=== PATIENT | female | born 1990 | race African-American/Black ===

== ENCOUNTER 2019-06-28 09:52 | Observation (INO) ==
[2019-06-28] MEDS ORDERED: LACTATED RINGERS 1,000 ML IV SCH (11:00)
[2019-06-28] MEDS ORDERED: PROMETHAZINE 25 MG/1 ML VIAL IM ONE (11:00)
[2019-06-28] MEDS ORDERED: PROMETHAZINE 25 MG/1 ML VIAL IM PRN (11:55)
[2019-06-28] MEDS: LACTATED RINGERS 1,000 ML IV SCH (15:01)
[2019-06-29 05:48] LABS: Albumin 2.4 G/DL (3.4-5.0); Bilirubin,Total 0.8 MG/DL (0.2-1.0); Calcium 9.2 MG/DL (8.5-10.1); Total Protein 6.6 G/DL (6.4-8.3)
[2019-06-29] MEDS: LACTATED RINGERS 1,000 ML IV SCH ×2 (08:30→17:50)
[2019-06-29 15:06] LABS: Albumin 2.5 G/DL (3.4-5.0); Bilirubin,Total 0.5 MG/DL (0.2-1.0); Calcium 9.2 MG/DL (8.5-10.1); Osmolality,Calculated 278.1 MOS/KG (273-304); Total Protein 6.9 G/DL (6.4-8.3)
[2019-06-29] MEDS: PANTOPRAZOLE 40 MG VIAL IV SCH (20:30)
[2019-06-30] MEDS: LACTATED RINGERS 1,000 ML IV SCH (04:11)
[2019-06-30] MEDS: PANTOPRAZOLE 40 MG VIAL IV SCH (10:10)
[2019-06-30 10:15] VITALS: BP 119/60
== END 2019-06-30 12:20 | disposition home or self-care (01) ==
LOC: EDSTATUS 09:52 → N.LD 09:52 → N.OB 09:52 → N.LDOUT 09:52 → N.LD 09:53 → N.OB 12:32 → EDSTATUS 07-04 08:07 → UNDODEPREF 07-12 10:38
PROVIDERS: ADMIT Obstetrics & Gynecology; ATTEND Obstetrics & Gynecology

== ENCOUNTER 2019-09-21 09:00 | Inpatient (IN) ==
[2019-09-22] MEDS ORDERED: LABETALOL 100 MG TABLET PO SCH (09:00)
[2019-09-22 09:41] LABS: Basophils % 0.3 % (0.0-0.8); Eosinophils % 0.5 % (0.00-10.9); Hematocrit 35.7 VOL% (35.7-47.0); Hemoglobin 11.4 GM/DL (12.0-16.0); Immature Granulocytes % 0.2 %; Immature Granulocytes Absolute 0.01 #; Lymphocytes # 1.9 10*3/uL (1.4-4.0); Lymphocytes % 30.4 % (21.3-54.2); Mean Corpuscular HGB Conc 31.9 GM/DL (32-36); Mean Corpuscular Volume 72.4 FL (87-102); Monocytes % 7.5 % (1.7-12.7); Neutrophils % 61.1 % (38.7-73.9); Platelet Count 175 T/CUMM (130-400); Red Blood Count 4.93 MC/CUMM (3.8-5.5); Red Cell Distribution Width 15.7 % (9.3-17.3); White Blood Count 6.3 T/CUMM (4-12)
[2019-09-22 09:58] LABS: INR 0.9; Partial Thromboplastin Time 38.7 SECS (20.8-36.0)
[2019-09-22 10:00] LABS: Hypochromasia 1+; Microcytosis 1+
[2019-09-22 10:01] LABS: Ovalocytes Few; Tear Drop Cells Slight
[2019-09-22 10:08] LABS: Alanine Aminotransferase 11 U/L (13-56); Albumin 2.6 G/DL (3.4-5.0); Alkaline Phosphatase 121 U/L (45-117); Aspartate Amino Transferase 12 U/L (0-37); Bilirubin,Total < 0.39 MG/DL (0.2-1.0); Blood Urea Nitrogen 14 MG/DL (7-18); Calcium 8.9 MG/DL (8.5-10.1); Estimated Glom Filtration Rate 181 ML/MIN; Glucose 72 MG/DL (74-106); Osmolality,Calculated 272.8 MOS/KG (273-304); Total Protein 7.1 G/DL (6.4-8.3)
[2019-09-22] MEDS ORDERED: FAMOTIDINE 20 MG/2 ML VIAL IV ONE (11:00)
[2019-09-22] MEDS ORDERED: OXYTOCIN/LR 30 UNIT/1,000 ML BAG IV ONE (11:00)
[2019-09-22] MEDS ORDERED: CITRIC ACID/SODIUM CITRATE 30 ML UDCUP PO ONE (11:00)
[2019-09-22] MEDS ORDERED: ceFAZolin 3,000 MG in SYRINGE 1 EACH IV ONE (11:00)
[2019-09-22] MEDS ORDERED: OXYTOCIN 10 UNIT/ML VIAL IM ONE (11:00)
[2019-09-22] MEDS: LACTATED RINGERS 1,000 ML IV SCH ×2 (12:42→12:43)
[2019-09-22] MEDS ORDERED: OXYTOCIN/LR 20 UNIT/1,000 ML BAG IV ONE (14:26)
[2019-09-22] MEDS ORDERED: ACETAMINOPHEN 325 MG TABLET PO PRN (14:26)
[2019-09-22] MEDS ORDERED: ONDANSETRON 4 MG/2 ML VIAL IV PRN (14:26)
[2019-09-22] MEDS ORDERED: SIMETHICONE CHEW 80 MG TABLET PO PRN (14:26)
[2019-09-22] MEDS ORDERED: RHO(D) IMMUNE GLOBULIN 300 MCG SYRINGE IM ONE (14:26)
[2019-09-22] MEDS ORDERED: ceFAZolin 1,000 MG in SYRINGE 1 EACH IV SCH (14:30)
[2019-09-22] MEDS ORDERED: LACTATED RINGERS 1,000 ML IV SCH (14:30)
[2019-09-22 14:34] LABS: Cord Venous Blood HCO3 21.2 MMOL/L; Cord Venous Blood PCO2 45.5 MMHG
[2019-09-22 14:35] LABS: Cord Venous Blood PO2 19.5
[2019-09-22] MEDS ORDERED: PHENYLEPHRINE 1 MG/10 ML SYRINGE IV ONE (14:46)
[2019-09-22] MEDS ORDERED: fentaNYL 100 MCG/2 ML VIAL ONE (14:46)
[2019-09-22] MEDS ORDERED: BUPIVACAINE SPINAL 0.75% 2 ML AMP SPINAL ONE (14:46)
[2019-09-22] MEDS ORDERED: MIDAZOLAM 2 MG/2 ML VIAL ONE (14:46)
[2019-09-22] MEDS ORDERED: MORPHINE 10 MG/10 ML VIAL ONE (14:46)
[2019-09-22] MEDS ORDERED: LIDOCAINE 2% 5 ML VIAL ONE (14:47)
[2019-09-22 14:48] LABS: Apearance,Urine CLEAR (Clear); Bilirubin,Urine Negative (Negative); Blood, Urine Negative (Negative); Glucose,Urine (UA) Negative (Negative); Ketones,Urine 20 mg/dL (Negative); Mucus,Urine Occasional /LPF (Occasional); Nitrite,Urine Negative (Negative); Protein,Urine Negative; RBC,Urine <1 /HPF (0-4); Squamous Epithelial Cell,Urine Occasional /HPF (0-10); Urine Color Straw (Yellow); Urine Specific Gravity 1.012 (1.001-1.035); Urine Urobilinogen < 2.0 EU/DL (0.2-1.0); WBC,Urine 1 /HPF (0-6)
[2019-09-22] MEDS ORDERED: HYDROmorphone 2 MG/1 ML VIAL IV PRN (19:21)
[2019-09-22] MEDS: DOCUSATE SODIUM 100 MG CAPSULE PO SCH (21:14)
[2019-09-22 22:50] LABS: Basophils % 0.3 % (0.0-0.8); Eosinophils % 0.3 % (0.00-10.9); Hematocrit 36.2 VOL% (35.7-47.0); Hemoglobin 11.3 GM/DL (12.0-16.0); Immature Granulocytes % 0.4 %; Immature Granulocytes Absolute 0.03 #; Lymphocytes # 2.1 10*3/uL (1.4-4.0); Lymphocytes % 26.6 % (21.3-54.2); Mean Corpuscular HGB Conc 31.2 GM/DL (32-36); Mean Corpuscular Volume 73.9 FL (87-102); Monocytes % 7.9 % (1.7-12.7); Neutrophils % 64.5 % (38.7-73.9); Platelet Count 208 T/CUMM (130-400); Red Cell Distribution Width 15.9 % (9.3-17.3); White Blood Count 7.7 T/CUMM (4-12)
[2019-09-23 00:54] LABS: Ovalocytes 1+; Platelet Estimate Normal; Tear Drop Cells Few
[2019-09-23] MEDS ORDERED: LACTATED RINGERS 1,000 ML IV SCH (01:00)
[2019-09-23] MEDS ORDERED: diphenhydrAMINE 50 MG/1 ML VIAL IV PRN (04:53)
[2019-09-23] MEDS ORDERED: ceFAZolin 1,000 MG in SYRINGE 1 EACH IV ONE (06:00)
[2019-09-23] MEDS: METOCLOPRAMIDE 10 MG TABLET PO SCH ×4 (07:15→22:57)
[2019-09-23 07:27] LABS: Basophils % 0.3 % (0.0-0.8); Eosinophils % 0.5 % (0.00-10.9); Hematocrit 33.7 VOL% (35.7-47.0); Hemoglobin 10.7 GM/DL (12.0-16.0); Immature Granulocytes % 0.4 %; Immature Granulocytes Absolute 0.03 #; Lymphocytes # 1.5 10*3/uL (1.4-4.0); Lymphocytes % 18.7 % (21.3-54.2); Mean Corpuscular HGB Conc 31.8 GM/DL (32-36); Mean Corpuscular Volume 73.3 FL (87-102); Monocytes % 8.2 % (1.7-12.7); Neutrophils % 71.9 % (38.7-73.9); Platelet Count 155 T/CUMM (130-400); Red Cell Distribution Width 15.7 % (9.3-17.3); White Blood Count 7.8 T/CUMM (4-12)
[2019-09-23] MEDS: MULTIVITAMIN (PRENATAL) TABLET PO SCH (08:54)
[2019-09-23] MEDS: IBUPROFEN 800 MG TABLET PO PRN ×2 (08:54→22:58)
[2019-09-23] MEDS: DOCUSATE SODIUM 100 MG CAPSULE PO SCH ×2 (08:54→21:21)
[2019-09-23] MEDS: MAGNESIUM HYDROXIDE SUSP 30 ML UDCUP PO PRN ×2 (11:52→21:21)
[2019-09-23] MEDS ORDERED: MAGNESIUM CITRATE 300 ML BOTTLE PO PRN (13:20)
[2019-09-24] MEDS ORDERED: oxyCODONE/ACETAMINOPHEN 5-325 MG TABLET PO PRN (00:55)
[2019-09-24] MEDS ORDERED: diphenhydrAMINE CAP 25 MG CAPSULE PO PRN (02:40)
[2019-09-24] MEDS ORDERED: diphenhydrAMINE CAP 25 MG CAPSULE ONE (02:41)
[2019-09-24] MEDS: METOCLOPRAMIDE 10 MG TABLET PO SCH ×2 (06:45→13:02)
[2019-09-24] MEDS: DOCUSATE SODIUM 100 MG CAPSULE PO SCH (08:45)
[2019-09-24] MEDS: MULTIVITAMIN (PRENATAL) TABLET PO SCH (08:48)
[2019-09-24] MEDS: MAGNESIUM HYDROXIDE SUSP 30 ML UDCUP PO PRN ×2 (13:07→20:38)
[2019-09-24 16:39] VITALS: BP 126/86
[2019-09-24] MEDS ORDERED: MEASLES/MUMPS/RUBELLA VACCINE 0.5 ML VIAL SUBCUT ONE (19:39)
[2019-09-24] MEDS ORDERED: INFLUENZA VIRUS VACCINE 0.5 ML SYRINGE IM ONE (20:32)
== END 2019-09-24 21:25 | disposition home or self-care (01) | DRG 540 ==
LOC: N.LD 09-22 05:57 → N.OB 09-22 20:05
PROVIDERS: ADMIT Obstetrics & Gynecology; ATTEND Obstetrics & Gynecology
PROC: LDCSECT (ICD-10-PCS; 2019-09-22 12:55)

== ENCOUNTER 2022-07-05 08:05 | Observation (INO) ==
[2022-07-05] MEDS ORDERED: SODIUM CHLORIDE 0.9% 1,000 ML IV STA ×2 (09:26→11:57)
[2022-07-05] MEDS ORDERED: ONDANSETRON 4 MG/2 ML VIAL IV STA (09:26)
[2022-07-05 09:37] LABS: Basophils % 0.6 % (0.0-0.8); Eosinophils % 0.8 % (0.00-10.9); Hematocrit 36.2 VOL% (35.7-47.0); Hemoglobin 11.3 GM/DL (12.0-16.0); Immature Granulocytes % 0.4 %; Immature Granulocytes Absolute 0.02 #; Lymphocytes # 1.9 10*3/uL (1.4-4.0); Mean Corpuscular HGB Conc 31.2 GM/DL (32-36); Mean Corpuscular Volume 67.3 FL (87-102); Monocytes # 0.3 10*3/uL (0.11-0.8); Neutrophils % 56.2 % (38.7-73.9); Platelet Count 232 T/CUMM (130-400); Red Blood Count 5.38 MC/CUMM (3.8-5.5); Red Cell Distribution Width 17.2 % (9.3-17.3); White Blood Count 5.3 T/CUMM (4-12)
[2022-07-05 09:49] LABS: Albumin 3.6 G/DL (3.4-5.0); Bilirubin,Total 0.5 MG/DL (0.20-1.00); Calcium 9.3 MG/DL (8.5-10.1); Osmolality,Calculated 280.7 MOS/KG (273-304); Potassium 3.9 MMOL/L (3.5-5.1); Total Protein 8.9 G/DL (6.4-8.2)
[2022-07-05 09:52] LABS: Risk Ratio 3.24; VLDL Cholesterol 13.2 MG/DL
[2022-07-05] MEDS ORDERED: INSULIN LISPRO 100 UNIT/ML SUBCUT STA (10:02)
[2022-07-05 10:19] LABS: Bilirubin,Urine Negative (Negative); Blood, Urine Negative (Negative); Glucose,Urine (UA) >=500 mg/dL (Negative); Ketones,Urine 80 mg/dL (Negative); Mucus,Urine Occasional /LPF (Occasional); Nitrite,Urine Negative (Negative); Protein,Urine Negative (Negative); RBC,Urine 32 /HPF (0-4); Squamous Epithelial Cell,Urine Few /HPF (0-10); Urine Appearance CLOUDY (Clear); Urine Color Yellow (Yellow); Urine Specific Gravity 1.033 (1.001-1.035); Urine Urobilinogen < 2.0 eU/dL (<2.0)
[2022-07-05] MEDS ORDERED: ONDANSETRON 4 MG/2 ML VIAL IV PRN (12:20)
[2022-07-05] MEDS ORDERED: traZODone 50 MG TABLET PO PRN (12:20)
[2022-07-05] MEDS ORDERED: ACETAMINOPHEN 325 MG TABLET PO PRN (12:20)
[2022-07-05] MEDS ORDERED: FLUCONAZOLE INJ 200 MG/100 ML PREMIX IV ONE (14:00)
[2022-07-05] MEDS: SODIUM CHLORIDE 0.45% 1,000 ML IV SCH ×2 (14:00→23:41)
[2022-07-05] MEDS: PANTOPRAZOLE 40 MG TABLET PO SCH (14:05)
[2022-07-05] MEDS ORDERED: GLUCAGON 1 MG VIAL IM PRN (15:15)
[2022-07-05] MEDS ORDERED: DEXTROSE 10% 250 ML BAG IV PRN (15:15)
[2022-07-05] MEDS: INSULIN NPH 100 UNIT/ML SUBCUT SCH ×2 (15:17→21:49)
[2022-07-05] MEDS: INSULIN REGULAR 100 UNIT/ML SUBCUT SCH ×2 (16:56→20:44)
[2022-07-05] MEDS: cefTRIAXone 2,000 MG in SODIUM CHLORIDE 0.9% 100 ML IV SCH (17:33)
[2022-07-05] MEDS: ENOXAPARIN 40 MG/0.4 ML SYRINGE SUBCUT SCH (20:44)
[2022-07-06 05:06] LABS: Basophils % 0.4 % (0.0-0.8); Eosinophils # 0.1 10*3/uL (0.0-0.87); Eosinophils % 1.7 % (0.00-10.9); Hematocrit 33.4 VOL% (35.7-47.0); Hemoglobin 10.1 GM/DL (12.0-16.0); Immature Granulocytes % 0.4 %; Immature Granulocytes Absolute 0.02 #; Lymphocytes # 2.3 10*3/uL (1.4-4.0); Lymphocytes % 42.8 % (21.3-54.2); Mean Corpuscular HGB Conc 30.2 GM/DL (32-36); Mean Corpuscular Volume 68.4 FL (87-102); Monocytes # 0.4 10*3/uL (0.11-0.8); Monocytes % 6.5 % (1.7-12.7); Neutrophils % 48.2 % (38.7-73.9); Platelet Count 221 T/CUMM (130-400); Red Blood Count 4.88 MC/CUMM (3.8-5.5); Red Cell Distribution Width 17.5 % (9.3-17.3); White Blood Count 5.4 T/CUMM (4-12)
[2022-07-06 05:28] LABS: Calcium 8.6 MG/DL (8.5-10.1); Potassium 3.2 MMOL/L (3.5-5.1)
[2022-07-06] MEDS: SODIUM CHLORIDE 0.45% 1,000 ML IV SCH ×2 (06:44→13:04)
[2022-07-06] MEDS: INSULIN REGULAR 100 UNIT/ML SUBCUT SCH ×4 (07:38→21:14)
[2022-07-06] MEDS ORDERED: POTASSIUM CHLORIDE 20 MEQ TABLET PO ONE (09:00)
[2022-07-06] MEDS ORDERED: DAPAGLIFLOZIN 10 MG TABLET PO SCH (09:00)
[2022-07-06] MEDS ORDERED: MAGNESIUM SULF RIDER 2 GM/50 ML PREMIX IV ONE (09:00)
[2022-07-06] MEDS ORDERED: FERROUS SULFATE 325 MG TABLET PO SCH (09:00)
[2022-07-06] MEDS: INSULIN NPH 100 UNIT/ML SUBCUT SCH ×2 (09:06→22:06)
[2022-07-06] MEDS: PANTOPRAZOLE 40 MG TABLET PO SCH (09:07)
[2022-07-06] MEDS: CHOLECALCIFEROL 1,000 UNIT TABLET PO SCH (09:07)
[2022-07-06] MEDS: FERROUS SULFATE 325 MG TABLET PO SCH (09:12)
[2022-07-06] MEDS: MAGNESIUM CHLORIDE 64 MG TABLET PO SCH (09:23)
[2022-07-06] MEDS: FLUCONAZOLE 100 MG TABLET PO SCH (11:38)
[2022-07-06] MEDS: SODIUM CHLORIDE 0.9% 1,000 ML IV SCH ×2 (13:03→21:16)
[2022-07-06] MEDS: metFORMIN 500 MG TABLET PO SCH (16:48)
[2022-07-06] MEDS: cefTRIAXone 2,000 MG in SODIUM CHLORIDE 0.9% 100 ML IV SCH (17:14)
[2022-07-06] MEDS: ENOXAPARIN 40 MG/0.4 ML SYRINGE SUBCUT SCH (21:15)
[2022-07-07] MEDS: SODIUM CHLORIDE 0.9% 1,000 ML IV SCH (04:32)
[2022-07-07 06:08] LABS: Basophils % 0.5 % (0.0-0.8); Eosinophils # 0.1 10*3/uL (0.0-0.87); Eosinophils % 1.2 % (0.00-10.9); Hematocrit 32.8 VOL% (35.7-47.0); Hemoglobin 9.9 GM/DL (12.0-16.0); Immature Granulocytes % 0.4 %; Immature Granulocytes Absolute 0.02 #; Lymphocytes % 34.8 % (21.3-54.2); Mean Corpuscular HGB Conc 30.2 GM/DL (32-36); Mean Corpuscular Volume 68.9 FL (87-102); Mean Platelet Volume 9.9 FL (9.6-12.0); Monocytes # 0.4 10*3/uL (0.11-0.8); Monocytes % 6.9 % (1.7-12.7); Neutrophils % 56.2 % (38.7-73.9); Platelet Count 218 T/CUMM (130-400); Red Blood Count 4.76 MC/CUMM (3.8-5.5); Red Cell Distribution Width 17.8 % (9.3-17.3); White Blood Count 5.7 T/CUMM (4-12)
[2022-07-07 06:09] LABS: Basophils % 0.3 % (0.0-0.8); Eosinophils # 0.1 10*3/uL (0.0-0.87); Eosinophils % 1.2 % (0.00-10.9); Hematocrit 32.5 VOL% (35.7-47.0); Immature Granulocytes % 0.5 %; Immature Granulocytes Absolute 0.03 #; Lymphocytes # 2.1 10*3/uL (1.4-4.0); Lymphocytes % 35.7 % (21.3-54.2); Mean Corpuscular HGB Conc 30.8 GM/DL (32-36); Mean Platelet Volume 11.1 FL (9.6-12.0); Monocytes # 0.4 10*3/uL (0.11-0.8); Monocytes % 7.1 % (1.7-12.7); Neutrophils % 55.2 % (38.7-73.9); Platelet Count 208 T/CUMM (130-400); Red Blood Count 4.71 MC/CUMM (3.8-5.5); Red Cell Distribution Width 17.9 % (9.3-17.3); White Blood Count 5.9 T/CUMM (4-12)
[2022-07-07 06:21] LABS: Calcium 8.5 MG/DL (8.5-10.1); Osmolality,Calculated 277.5 MOS/KG (273-304); Potassium 3.4 MMOL/L (3.5-5.1)
[2022-07-07 06:29] LABS: Folate 11.67 NG/ML (5.38-24.0); Vitamin B12 660 PG/ML (211-911)
[2022-07-07 06:34] LABS: % Iron Saturation 12.4 % (18-50); Ferritin 28.6 ng/mL (8-252)
[2022-07-07 07:37] LABS: Sedimentation Rate-Westergren 30 MM/HR (0-20)
[2022-07-07 08:16] VITALS: BP 107/60
[2022-07-07] MEDS ORDERED: POTASSIUM CHLORIDE 20 MEQ TABLET PO ONE (08:42)
[2022-07-07] MEDS: metFORMIN 500 MG TABLET PO SCH (08:58)
[2022-07-07] MEDS: CHOLECALCIFEROL 1,000 UNIT TABLET PO SCH (08:58)
[2022-07-07] MEDS: FLUCONAZOLE 100 MG TABLET PO SCH (08:59)
[2022-07-07] MEDS: FERROUS SULFATE 325 MG TABLET PO SCH (08:59)
[2022-07-07] MEDS: PANTOPRAZOLE 40 MG TABLET PO SCH (08:59)
[2022-07-07] MEDS: MAGNESIUM CHLORIDE 64 MG TABLET PO SCH (08:59)
[2022-07-07] MEDS: INSULIN REGULAR 100 UNIT/ML SUBCUT SCH (09:05)
[2022-07-07] MEDS: INSULIN NPH 100 UNIT/ML SUBCUT SCH (09:06)
[2022-07-07 11:53] LABS: Hemoglobin A1 (Alkaline) 97.7 % (96.5-98.5); Hemoglobin A2 (Alkaline) 2.3 % (1.5-3.5)
== END 2022-07-07 12:07 | disposition home or self-care (01) ==
LOC: N.2W 08:05 → N.ED 08:05 → SUATTDRO 12:01 → N.2W 14:49
PROVIDERS: ADMIT Hospitalist; ATTEND Internal Medicine